=== PATIENT | male | born 1990 | race Caucasian/White ===

== ENCOUNTER 2018-03-15 19:02 | Emergency (ER) | payer OTHER ==
[~2018-03-15] VITALS: Ht 195.6 cm; Wt 83.9 kg
--- NOTE | ~2018-03-15 | EKG ---
[place] [address] [facility] [employer] [facility] [email or web address] [address] ELECTROCARDIOGRAM REPORT Name: CHELYVIANNEY Room #: ELIZABETH Wade#: [id number] Admission: 03/15/18 Attend Phys: Discharge: 03/15/18 Date of : [birth year] Report #: [id number] THIS REPORT FOR: //name// [facility] ED Test Date: 2018-03-15 Test Time: 19:12:51 Pat Name: VIANNEY [place] Department: Room: Gender: M [employer] Supervisor: VIRIDIANA : 1990 Requested By: Jacinta Carlton Order Number: [id number] MD: Casey Giron Measurements Intervals [place] Rate: 127 P: 42 NC: 116 QRS: 40 QRSD: 88 T: 9 QT: 299 QTc: 435 Interpretive Statements Sinus tachycardia ST elev, probable normal early repol pattern Compared to ECG 12/25/2017 12:43:58 Heart rate has increased Electronically Signed On 03-16-2018 8:49:52 [employer] SEARCH SPECIALIST by Casey Giron [email or web address] <ELECTRONICALLY SIGNED> By: Casey Giron MD, [facility] 03/16/18 0849 11 11 Casey Giron MD, FACC /EPI
[~2018-03-15 19:02] MED LIST: LOPRESSOR25 PO; PEPCID20 MG PO; PRENATAL PO; SLOW-MAG64 M1 PO; VITAMIN B-1100 M2 PO
[2018-03-15 20:00] LABS: CREATININE 1.3 mg/dL (0.7-1.3); HEMATOCRIT 23.6 % (42.0-52.0); HEMOGLOBIN 8.1 gm/dL (14.0-18.0); MCH 33.7 pg (26.0-34.0); MCHC 34.3 g/dL (28.0-37.0); MCV 98.4 fL (80.0-100.0); PLATELET COUNT 490 thou/uL (150-400); POTASSIUM 4.2 mmol/L (3.5-5.1); RDW 15.6 % (10.5-14.5); WBC 32.7 thou/uL (4.0-11.0)
[2018-03-15 20:06] LABS: ALBUMIN 3.3 g/dL (3.4-5.0); TOTAL BILIRUBIN 1.3 mg/dL (<0.1-1.0); TOTAL PROTEIN 6.8 g/dL (6.4-8.2)
[2018-03-15 20:25] LABS: ABSOLUTE NEUTROPHILS 30.7 thou/uL (1.4-8.2)
[2018-03-15 20:26] LABS: PLATELET ESTIMATE INCREASED
[2018-03-15 20:27] LABS: POLYCHROMASIA 1+
[2018-03-15 20:28] LABS: LARGE PLATELETS RARE; OVALOCYTES OCCASIONAL; POIKILOCYTOSIS SLIGHT; SCHISTOCYTES FEW
[2018-03-15 20:44] LABS: BE(vivo) -0.9 mmol/L (-2 to +3); PCO2 VENOUS 40.9 mmHg (41.0-51.0)
[2018-03-15 21:36] VITALS: BP 127/72
[2018-03-15 21:45] VITALS: BP 127/72
== END 2018-03-15 21:54 | disposition short-term general hospital (02) ==
LOC: ER 19:02
PROVIDERS: Student in an Organized Health Care Education/Training Program
DX: S36.09XA Other injury of spleen, initial encounter (principal); K66.1 Hemoperitoneum; R57.8 Other shock; D62 Acute posthemorrhagic anemia; Z88.8 Allergy status to other drugs, medicaments and biological substances; Z88.2 Allergy status to sulfonamides; W10.9XXA Fall (on) (from) unspecified stairs and steps, initial encounter; Y92.89 Other specified places as the place of occurrence of the external cause; Y93.89 Activity, other specified; Y99.8 Other external cause status